=== PATIENT | male | born 1975 | race Caucasian/White ===

== ENCOUNTER → 2018-03-22 | Emergency (ER) | payer SELFPAY ==
[~2018-03-22] VITALS: Ht 180.3 cm; Wt 105.0 kg
[2018-03-22 08:59] LABS: BASOPHILS % (AUTO) 0.6 % (0-1); EOSINOPHILS # (AUTO) 0.1 X10'3 (0-0.9); EOSINOPHILS % (AUTO) 0.7 % (0-6); HEMATOCRIT 47.1 % (42.0-52.0); HEMOGLOBIN 16.2 g/dl (14.0-17.9); LYMPHOCYTES # (AUTO) 1.1 X10'3 (1.1-4.8); LYMPHOCYTES % (AUTO) 14.9 % (21-51); MEAN CORPUSCULAR HEMOGLOBIN 32.8 PG (27.0-31.0); MEAN CORPUSCULAR HGB CONC 34.4 % (33.0-36.5); MEAN CORPUSCULAR VOLUME 95.3 FL (78-98); MEAN PLATELET VOLUME 7.5 FL (7.4-10.4); MONOCYTES # (AUTO) 0.4 X10'3 (0-0.9); MONOCYTES % (AUTO) 5.2 % (2-12); NEUTROPHILS # (AUTO) 5.9 X10'3 (1.8-7.7); NEUTROPHILS % (AUTO) 78.6 % (42-75); PLATELET COUNT 261 X10'3 (140-440); RED BLOOD COUNT 4.94 X10'6 (4.70-6.10); RED CELL DISTRIBUTION WIDTH 13.4 % (11.5-14.5); WHITE BLOOD COUNT 7.5 X10'3 (4.5-11.0)
[2018-03-22 09:00] VITALS: BP 142/60
[2018-03-22 09:13] LABS: ALANINE AMINOTRANSFERASE 51 U/L (12-78); ALBUMIN/GLOBULIN RATIO 1.1 (1.1-1.5); ALKALINE PHOSPHATASE 57 IU/L (46-116); ANION GAP 8 (8-16); ASPARTATE AMINO TRANSFERASE 26 U/L (10-37); BILIRUBIN,TOTAL 0.4 MG/DL (0.1-1.0); BLOOD UREA NITROGEN 13 MG/DL (7-18); CALCIUM 9.1 MG/DL (8.5-10.1); CHLORIDE 104 MMOL/L (99-107); CREATININE 0.93 MG/DL (0.60-1.10); GLUCOSE 103 MG/DL (70-104); POTASSIUM 4.4 MMOL/L (3.5-5.1); SODIUM 140 MMOL/L (135-145); TOTAL CARBON DIOXIDE 28.5 MMOL/L (24-32); TOTAL PROTEIN 7.8 G/DL (6.4-8.2); eGFR 90 ML/MIN
== END | disposition home or self-care (01) ==
LOC: ER 07:35
DX: R55 Syncope and collapse (principal); R11.10 Vomiting, unspecified; R41.0 Disorientation, unspecified; R51 Headache; F12.90 Cannabis use, unspecified, uncomplicated
CPT/HCPCS: 36415; 80053; 82948; 85025; 93005; 99285

== ENCOUNTER 2019-08-12 08:00 | Observation (INO) | payer OTHER ==
[~2019-08-12] VITALS: Ht 180.3 cm; Wt 99.9 kg
[2019-08-12] MEDS ORDERED: aspirin 81mg tab.chew PO ONE (08:30)
[2019-08-12] MEDS ORDERED: normal saline 1000ml 1,000 ML IV ONE (08:40)
[2019-08-12 08:56] LABS: BASOPHILS % (AUTO) 0.7 % (0-1); EOSINOPHILS # (AUTO) 0.1 X10'3 (0-0.9); EOSINOPHILS % (AUTO) 1.1 % (0-6); HEMATOCRIT 45.9 % (42.0-52.0); HEMOGLOBIN 15.8 g/dl (14.0-17.9); LYMPHOCYTES # (AUTO) 1.2 X10'3 (1.1-4.8); LYMPHOCYTES % (AUTO) 17.9 % (21-51); MEAN CORPUSCULAR HEMOGLOBIN 32.1 PG (27.0-31.0); MEAN CORPUSCULAR HGB CONC 34.3 g/dL (33.0-36.5); MEAN CORPUSCULAR VOLUME 93.6 FL (78-98); MEAN PLATELET VOLUME 7.5 FL (7.4-10.4); MONOCYTES # (AUTO) 0.5 X10'3 (0-0.9); MONOCYTES % (AUTO) 8.3 % (2-12); NEUTROPHILS # (AUTO) 4.6 X10'3 (1.8-7.7); PLATELET COUNT 252 X10'3 (140-440); RED BLOOD COUNT 4.91 X10'6 (4.70-6.10); RED CELL DISTRIBUTION WIDTH 13.2 % (11.5-14.5); WHITE BLOOD COUNT 6.4 X10'3 (4.5-11.0)
[2019-08-12 09:22] LABS: D-DIMER 0.29 MG/L FEU (0-0.50)
[2019-08-12 09:27] LABS: ALANINE AMINOTRANSFERASE 27 U/L (12-78); ALBUMIN/GLOBULIN RATIO 1.2 (1.1-1.5); ALKALINE PHOSPHATASE 56 IU/L (46-116); ANION GAP 5 (8-16); ASPARTATE AMINO TRANSFERASE 17 U/L (10-37); BILIRUBIN,TOTAL 0.4 MG/DL (0.1-1.0); BLOOD UREA NITROGEN 16 MG/DL (7-18); BUN/CREATININE RATIO 16.8 (5.4-32.0); CALCIUM 9.2 MG/DL (8.5-10.1); CHLORIDE 107 MMOL/L (99-107); CREATININE 0.95 MG/DL (0.60-1.10); GLUCOSE 106 MG/DL (70-104); MAGNESIUM 2.2 MG/DL (1.5-2.4); POTASSIUM 4.6 MMOL/L (3.5-5.1); SODIUM 140 MMOL/L (135-145); TOTAL CARBON DIOXIDE 28.4 MMOL/L (24-32); TOTAL PROTEIN 7.4 G/DL (6.4-8.2); eGFR 87 ML/MIN
[2019-08-12] MEDS ORDERED: ketorolac trometh. 30mg/ml inj. IV ONE (09:45)
[2019-08-12] MEDS ORDERED: magnesium 2GM in 50ml NS 50 ML IV PRN (10:00)
[2019-08-12] MEDS ORDERED: HYDROcodone/acetaminophen 10/325mg tab PO PRN (10:00)
[2019-08-12] MEDS ORDERED: magnesium Cl slow-release 64mg tablet PO PRN (10:00)
[2019-08-12] MEDS ORDERED: mag hydrox/Alum hydrox/simeth 30ml oral suspension PO PRN (10:00)
[2019-08-12] MEDS ORDERED: magnesium hydroxide 30ml (MOM) UD suspension PO PRN (10:00)
[2019-08-12] MEDS ORDERED: ondansetron/PF 4mg/2ml inj IV PRN (10:00)
[2019-08-12] MEDS ORDERED: acetaminophen 325mg tablet PO PRN ×2 (10:00)
[2019-08-12] MEDS ORDERED: potassium CL 10mEq/100ml bag 100 ML IV PRN ×2 (10:00)
[2019-08-12] MEDS ORDERED: magnesium 4gm in 100ml NS 100 ML IV PRN (10:00)
[2019-08-12] MEDS ORDERED: potassium Cl 20 mEq SR tablet PO PRN ×2 (10:00)
[2019-08-12] MEDS: normal saline 1000ml 1,000 ML IV SCH ×3 (10:20→17:00)
[2019-08-12] MEDS ORDERED: iohexol 350MG/ML 100ml bottle IV ONE (10:27)
[2019-08-12 10:45] LABS: URINE AMPHETAMINE SCREEN NEGATIVE (Neg); URINE BARBITUATE SCREEN NEGATIVE (Neg); URINE BENZODIAZEPINES SCREEN NEGATIVE (Neg); URINE CANNABINOID SCREEN POSITIVE (Neg); URINE COCAINE SCREEN NEGATIVE (Neg); URINE METHADONE SCREEN NEGATIVE (Neg); URINE OPIATE SCREEN NEGATIVE (Neg); URINE PHENCYCLIDINE SCREEN NEGATIVE (Neg)
[2019-08-12] MEDS ORDERED: NO HOME MEDS (11:39)
--- NOTE | 2019-08-12 11:50 | NUR ---
MRI FORM COMPLETED
[2019-08-12 13:59] VITALS: BP 116/86
[2019-08-12 17:38] VITALS: BP_SYST 134; BP_DIAS 86; BP_DIAS 88
[2019-08-12 17:39] VITALS: BP 132/89
[2019-08-12 18:00] VITALS: BP 134/86
--- NOTE | 2019-08-12 18:10 | NUR ---
Received patient report from HINA Qiu. Assumed patient care.
--- NOTE | 2019-08-12 18:16 | NUR ---
Problems reprioritized. Patient report given, questions answered & plan of care reviewed with HINA Hyman.
[2019-08-12 20:00] VITALS: BP_SYST 122; BP_SYST 125; BP_SYST 139; BP_DIAS 73; BP_DIAS 86; BP_DIAS 88
[2019-08-12] MEDS: heparin, porcine 5000 units/ml vial SQ SCH (20:00)
[2019-08-12] MEDS: K and/or MAG REPLACEMENT MC SCH (20:00)
[2019-08-12 22:00] VITALS: BP 122/73
[2019-08-13 02:00] VITALS: BP 119/68
[2019-08-13] MEDS: normal saline 1000ml 1,000 ML IV SCH (03:54)
--- NOTE | 2019-08-13 05:57 | NUR ---
Patient report given, questions answered and plan of care reviewed with HINA Qiu.
[2019-08-13 06:00] VITALS: BP 112/83
[2019-08-13 06:46] LABS: BASOPHILS % (AUTO) 0.5 % (0-1); EOSINOPHILS # (AUTO) 0.1 X10'3 (0-0.9); EOSINOPHILS % (AUTO) 1.7 % (0-6); HEMATOCRIT 42.4 % (42.0-52.0); HEMOGLOBIN 14.5 g/dl (14.0-17.9); LYMPHOCYTES # (AUTO) 1.4 X10'3 (1.1-4.8); MEAN CORPUSCULAR HEMOGLOBIN 32.2 PG (27.0-31.0); MEAN CORPUSCULAR HGB CONC 34.1 g/dL (33.0-36.5); MEAN CORPUSCULAR VOLUME 94.5 FL (78-98); MEAN PLATELET VOLUME 7.8 FL (7.4-10.4); MONOCYTES # (AUTO) 0.6 X10'3 (0-0.9); MONOCYTES % (AUTO) 8.6 % (2-12); NEUTROPHILS # (AUTO) 4.5 X10'3 (1.8-7.7); NEUTROPHILS % (AUTO) 68.2 % (42-75); PLATELET COUNT 233 X10'3 (140-440); RED BLOOD COUNT 4.49 X10'6 (4.70-6.10); RED CELL DISTRIBUTION WIDTH 13.2 % (11.5-14.5); WHITE BLOOD COUNT 6.6 X10'3 (4.5-11.0)
[2019-08-13 07:08] LABS: ALANINE AMINOTRANSFERASE 22 U/L (12-78); ALBUMIN 3.4 G/DL (3.4-5.0); ALBUMIN/GLOBULIN RATIO 1.1 (1.1-1.5); ALKALINE PHOSPHATASE 51 IU/L (46-116); ANION GAP 7 (8-16); ASPARTATE AMINO TRANSFERASE 16 U/L (10-37); BILIRUBIN,TOTAL 0.5 MG/DL (0.1-1.0); BLOOD UREA NITROGEN 10 MG/DL (7-18); BUN/CREATININE RATIO 11.2 (5.4-32.0); CALCIUM 8.6 MG/DL (8.5-10.1); CHLORIDE 109 MMOL/L (99-107); CHOL/HDL RATIO 2.8 (0.00-4.99); CHOLESTEROL 143 MG/DL (0-200); CREATININE 0.89 MG/DL (0.60-1.10); GLUCOSE 105 MG/DL (70-104); HDL CHOLESTEROL 52 MG/DL (35-60); LDL CHOLESTEROL 76 MG/DL (50-100); MAGNESIUM 2.1 MG/DL (1.5-2.4); POTASSIUM 4.2 MMOL/L (3.5-5.1); SODIUM 142 MMOL/L (135-145); TOTAL CARBON DIOXIDE 25.7 MMOL/L (24-32); TOTAL PROTEIN 6.5 G/DL (6.4-8.2); TRIGLYCERIDES 75 MG/DL (20-135); eGFR > 90 ML/MIN
[2019-08-13] MEDS: K and/or MAG REPLACEMENT MC SCH (08:00)
[2019-08-13] MEDS: heparin, porcine 5000 units/ml vial SQ SCH (08:00)
--- NOTE | 2019-08-13 09:54 | NUR ---
Telemedicine consult completed by neurologist Dr. Moreno from [facility]. He will recommend pt start on Keflex, and not drive for 3 months. He will call Dr. Callahan with recommendations.
[2019-08-13 10:00] VITALS: BP 139/89
[2019-08-13] MEDS ORDERED: KEP500T PO (11:31)
[2019-08-13] MEDS ORDERED: levetiracetam inj 1,500 MG in normal saline 100ml IV soln 85 ML IV SCH (11:35)
--- NOTE | 2019-08-13 12:35 | NUR ---
Received discharge orders from Dr. Callahan. Called in RX for [facility] in [place]. Reviewed discharge instructions and gave pt a medical record release of information that they may sign in a few days and return to get medical records for self referral to a Neurologist in "[place]" per 's request. Pt ambulated to personal car in front of the hospital.
== END 2019-08-13 12:36 | disposition home or self-care (01) ==
LOC: ER 08:01 → ED HOLD 09:56 → EDBEDREQ 12:21 → ORTHO 4S 12:48
PROVIDERS: ADMIT Family Medicine; ATTEND Family Medicine
DX: R55 Syncope and collapse (principal); F10.99 Alcohol use, unspecified with unspecified alcohol-induced disorder; F12.90 Cannabis use, unspecified, uncomplicated; E86.0 Dehydration; F17.210 Nicotine dependence, cigarettes, uncomplicated; Z90.49 Acquired absence of other specified parts of digestive tract
CPT/HCPCS: 36415; 70496; 70498; 70551; 71045; 80053; 80061; 80305; 83605; 83735; 83880; 84484; 85025; 85379; 87040; 87081; 93005; 93306; 95816; 96361; 96374; 97161; 97530; 99285; G0378; J1885; J7030; Q9967

== ENCOUNTER 2020-04-24 08:51 | Outpatient (CLI) | payer OTHER ==
[~2020-04-24 08:51] MED LIST: KEP500T PO
== END 2020-04-24 23:59 | disposition home or self-care (01) ==
LOC: RAD 08:51
PROVIDERS: ATTEND Psychiatry & Neurology Neurology
DX: R41.82 Altered mental status, unspecified (principal)
CPT/HCPCS: 95819